=== PATIENT | female | born 1960 | race Asian ===

== ENCOUNTER → 2019-05-19 | Outpatient (CLI) | payer MEDICARE | LOC: COL.RAD 16:21 | DX: R40.20 Unspecified coma (principal) ==

== ENCOUNTER → 2021-05-31 | Outpatient (CLI) | payer MEDICARE | LOC: COL.RAD 13:58 | DX: G44.309 Post-traumatic headache, unspecified, not intractable (principal); J34.9 Unspecified disorder of nose and nasal sinuses | CPT/HCPCS: Q9967 ==